=== PATIENT | male | born 1940 | race Caucasian/White ===

== ENCOUNTER 2022-08-31 10:21 | Emergency (ER) | payer OTHER ==
[~2022-08-31] VITALS: Ht 185.4 cm; Wt 77.0 kg
[2022-08-31] MEDS ORDERED: ASPIRIN 81MG TABLET PO ONE (11:00)
[2022-08-31] MEDS ORDERED: NITROGLYCERIN 0.4MG TABLET SL SL PRN (11:00)
[2022-08-31 11:58] LABS: HEMATOCRIT. 42.5 % (42.0-52.0); HEMOGLOBIN. 14.2 g/dL (14.0-18.0); MEAN CORPUSCULAR HEMOGLOBIN 30.4 pg (28.0-32.0); MEAN CORPUSCULAR VOLUME 90.8 fL (80.0-94.0); MEAN PLATELET VOLUME 10.5 fl (7.4-10.4); PLATELET 126 x1000/uL (130-400); RED BLOOD CELL COUNT 4.68 mill/uL (4.7-6.1)
[2022-08-31 12:25] LABS: CHLORIDE 104 mEq/L (98-107)
[2022-08-31 12:56] LABS: PLATELET ESTIMATE SLIGHTLY DECREASED
[2022-08-31 18:14] VITALS: BP 129/72
== END 2022-08-31 19:20 | disposition short-term general hospital (02) ==
LOC: ER 10:21 → CANBEDREQ 14:52 → ER 19:20
DX: I20.0 Unstable angina (principal); I10 Essential (primary) hypertension; E11.9 Type 2 diabetes mellitus without complications; Z88.5 Allergy status to narcotic agent; Z20.822 Contact with and (suspected) exposure to COVID-19
CPT/HCPCS: 36415; 71045; 80053; 83880; 84484; 85025; 87426; 93005; 99285; C9803